=== PATIENT | female | born 1995 | race Caucasian/White ===

== ENCOUNTER 2017-04-21 17:18 | Emergency (ER) | payer OTHER ==
--- NOTE | ~2017-04-21 | ER ---
PATIENT'S NAME: MARCELO OCONNOR [facility] AGE: 21 Y [address] ROOM: [place] [id number] LOCATION: [facility] ADMIT DATE: 04/21/2017 ER/Outpatient Report DISCHARGE DATE: 04/21/2017 FAMILY PHYSICIAN: Lauro Garcia MD ATTENDING PHYSICIAN: Bar Singleton Arrival Time: 1725 hours. Encounter Time: 1730 hours. SUBJECTIVE: Chief complaint of abdominal pain. HISTORY OF PRESENT ILLNESS: The patient is a pleasant 21-year-old female, in mild distress, who arrives by private auto complaining of abdominal pain in her lower quadrants of the abdomen bilaterally. Also, radiates into her back. It started over the last 2-3 days. Gradually worsening in intensity. Denies fever, chills, or sweats. She states that she has had some constipation that she has been dealing with over the last 1 to 2 weeks in addition to this. Denies burning frequency or urgency with urination. Last BM was earlier this morning. She describes it as hard and kind of broken up. Discomfort in her belly is worse after eating. Has had nausea intermittently, but no vomiting. Home treatment with ibuprofen and generic stool softener she got from the [facility]. Daily user of marijuana. Last menstrual period was 04/03/2017 and normal for her. She is sexually active with her boyfriend. Currently, only using oral control pill which she states good compliance with. REVIEW OF SYSTEMS: A 10-point review of systems performed by me and negative unless otherwise stated in the HPI above. Pertinent positives include constipation and nausea, but no vomiting. PAST MEDICAL HISTORY: Denied by the patient. PAST SURGICAL HISTORY: Denied by the patient. ALLERGIES: NO KNOWN DRUG ALLERGIES. MEDICATIONS: No routine medications. PATIENT'S NAME: MARCELO OCONNOR [facility] AGE: 21 Y [address] ROOM: [place] [address] LOCATION: [facility] ADMIT DATE: 04/21/2017 ER/Outpatient Report DISCHARGE DATE: 04/21/2017 FAMILY PHYSICIAN: Lauro Garcia MD ATTENDING PHYSICIAN: Bar Singleton SOCIAL HISTORY: The patient is a nonsmoker of tobacco, but does partake in marijuana almost every day. Denies alcohol use. OBJECTIVE: VITAL SIGNS: Largely normal. Height is 5 feet 7 inches, 61.9 kg, blood pressure 130/71, pulse 93, respirations 18 per minute, temp 98.2 tympanically, and SpO2 at 97% on room air. GENERAL: The patient is well developed, well nourished, and in mild distress. She is calm. Alert and oriented to person, place, and time. HEENT: Head is atraumatic and normocephalic. Eyes: Conjunctivae clear bilaterally. No discharge. Pupils are PERRLA bilaterally. EOMFI bilaterally. No nystagmus. NECK: Supple and without lymphadenopathy. Trachea midline. No JVD. LUNGS: Clear to auscultation bilaterally. No wheezes, crackles, rhonchi, or stridor. Normal respiratory effort. HEART: Regular rate and rhythm. No S3, S4, or extra sounds. ABDOMEN: Positive bowel sounds x4, though hypoactive. Dull percussion. Hard belly, but not distended. Moderately tender throughout abdomen, but most noticeable over the right lower quadrant. She does have some rebound tenderness. Heel jar and obturator signs are negative. EXTREMITIES: Without numbness or tingling. No clubbing, cyanosis, or edema. Full range of motion x4. +2/4 pulses bilaterally at the radial arteries bilaterally and dorsalis pedis arteries bilaterally. NEUROLOGIC: Cranial nerves 2 through 12 grossly intact. Strength is 5/5 bilaterally in the upper and lower extremities. Gait is steady and without assistance. Deep tendon reflexes +2/4 bilaterally at the knee level for quadriceps. LABORATORY DATA: Urinalysis shows yellow urine, but it is clear. Spec gravity 1.025, pH 6.0, positive for leukocytes at 25, and negative for nitrites, protein negative, glucose negative, ketones negative, urobilinogen normal, bilirubin negative, blood negative. Urinalysis micro shows 20-50 white blood cells per high-power field, no red blood cells, 5-10 epithelial cells per high-power field, moderate bacteria present, mucus is +1, and 0-2 hyaline casts present per low-power field. Urine HCG was negative. RADIOLOGY: Abdominal series shows a large amount of stool impacted in the large bowel. There are no air-fluid levels. No free air. Discussed the results with the patient on all the above testing. PATIENT'S NAME: MARCELO OCONNOR [place] [facility] AGE: 21 Y [address] ROOM: [place] [address] LOCATION: ED ADMIT DATE: 04/21/2017 ER/Outpatient Report DISCHARGE DATE: 04/21/2017 FAMILY PHYSICIAN: Lauro Garcia MD ATTENDING PHYSICIAN: Bar Singleton ASSESSMENT: 1. Urinary tract infection. 2. Constipation. 3. Right lower quadrant pain in the abdomen. PLAN: Provided the patient with 1 g IM injection of Rocephin as well as an oral regimen of Bactrim DS for the next 5 days to take 1 pill by mouth twice daily. Instructed to obtain some [id number] MiraLAX and take as directed to combat her constipation. Push fluids. Discussed using cranberry juice to help with any discomfort related to the urinary tract infection. Take all medications as prescribed. Discussed med risks, side effects, and benefits in detail with the patient. Give plenty of rest and liquids. Take Tylenol or ibuprofen as directed for fever or discomfort unless allergic, asthmatic, or aspirin sensitive. Return to the emergency department or her primary care provider over the next 24-72 hours if symptoms persist or worsen. The patient was discharged home in improved status with her mother. ANGUS KING PA-C FOR BAR SINGLETON MD SMR/modl /[id number] d: 04/22/17 0257 t: 05/11/17 1654, OUTPATIENT REPORT
[2017-04-21 18:00] LABS: BILIRUBIN URINE NEGATIVE (NEGATIVE); BLOOD URINE NEGATIVE /UL (NEGATIVE); COLOR URINE YELLOW (YELLOW); GLUCOSE URINE NEGATIVE (NEGATIVE); KETONE URINE NEGATIVE (NEGATIVE); LEUKOCYTES URINE 25 /UL (NEGATIVE); NITRITE URINE NEGATIVE (NEGATIVE); PROTEIN URINE NEGATIVE (NEGATIVE); SPEC GRAVITY URINE 1.025 (1.003-1.035); TURBIDITY URINE CLEAR (CLEAR); UROBILINOGEN URINE NORMAL (NORMAL)
[2017-04-21 18:09] LABS: RBC URINE NEGATIVE #/HPF (NEGATIVE); WBC URINE 20-50 #/HPF (NEGATIVE)
[2017-04-21 18:10] LABS: BACTERIA URINE MODERATE (NEGATIVE); MUCUS URINE 1+ (NEGATIVE)
[2017-04-21 18:11] LABS: HYALINE CAST URINE 0-2 #/LPF (NEGATIVE)
== END 2017-04-21 19:03 | disposition disaster alternative care site (69) ==
LOC: GMED 17:18
PROVIDERS: Physician Assistant
DX: N39.0 Urinary tract infection, site not specified (principal); K59.00 Constipation, unspecified
CPT/HCPCS: J0696